=== PATIENT | male | born 1970 | race Caucasian/White ===

== ENCOUNTER 2016-07-10 16:44 | Inpatient (IN) | payer OTHER ==
--- NOTE | ~2016-07-10 | DS ---
Discharge Summary [facility] [address] [place]. [address] NAME: JOEL CHUA : 66 STATUS : DIS IN PAT#: [id number] AGE: 45 ADM/REG DATE : 07/10/16 MR#: [id number] REPORT SERV DATE: 07/23/16 DICTATED BY: ZIYAD MIR DATE: 07/22/16 REPORT STATUS : Draft TRANSCRIBED BY: MODL DATE: 07/22/16 Data Collection from hospitalization DISCHARGE DIAGNOSIS(ES): 1. Upper abdominal pain. 2. Abdominal distention. 3. Nausea and vomiting. 4. Obstructive sleep apnea. 5. Gastroesophageal reflux disease. 6. Hemorrhoids. CONSULTATIONS: Lowell Cisse MD PROCEDURES PERFORMED: Abdominal ultrasound 07/11/2016. MEDICATIONS: Valium 10 mg twice a day as needed, Lidoderm patch one patch topically daily, Percocet 10/325 one tablet every 4 hours as needed, Lyrica 75 mg three times a day, Zantac 300 mg at bedtime, Flomax 0.4 mg at bedtime, Zanaflex 4 mg twice a day as needed, Effexor XR 37.5 mg every morning as instructed. CONDITION AT DISCHARGE: Stable. DISPOSITION: The patient was discharged home with diet and activities as instructed. HOSPITAL COURSE: This is a 45-year-old man who presented with increasing abdominal pain. He had had extensive workup for intermittent abdominal pain in the past including panendoscopy, CT scan, and colonoscopy. His pain increased over the past two to three days prior to admission. He had two emergency room visits which reportedly were negative. He was told that x-rays were negative too. He had noticed progressive abdominal distention with nausea and vomiting on one occasion. He denied diarrhea, but he had had occasional constipation. He denied any blood in his stools. He was admitted to the hospital at this time for further evaluation and treatment. Upon admission, he was afebrile. Labs looked okay. He was seen by Dr. Lowell Cisse. The patient said he had had an over 5 months of abdominal pain, right greater than left. He said he had had some swelling and increased pain. His labs were found to be within normal limits. Liver function tests were within normal limits at this time. Abdominal x-ray showed unremarkable nonspecific gas pattern. An abdominal ultrasound was requested. He still complained of some periumbilical pain. An abdominal ultrasound showed minimal nonobstructing left nephrolithiasis. There was inadequate visualization of the pancreas. This was, otherwise, a negative ultrasound exam of the abdomen. Small bowel followthrough was requested. There was no evidence of obstruction at this time. On 07/12/2016, he still complained of right upper quadrant pain. Small bowel followthrough was performed. This showed normal caliber small bowel without evidence of obstruction. Discharge planning was performed. On 07/13/2016, he still complained of constant right-sided pain. He had mild tenderness. The small bowel follow-through had been negative. Discharge instructions were given. Due to his improved and stable condition, he was discharged home with the above- stated instructions. Discharge Summary [address] [address] NAME: JOEL CHUA : 66 STATUS : DIS IN PAT#: [id number] AGE: 45 ADM/REG DATE : 07/10/16 MR#: [id number] REPORT SERV DATE: 07/23/16 DICTATED BY: ZIYAD MIR DATE: 07/22/16 REPORT STATUS : Draft TRANSCRIBED BY: ORI DATE: 07/22/16 Information collected by: Dedra Iqbal I submit the above information as my discharge summary. TG/ORI Ziyad Mir M.D. / [id number] CC: Zaina Dennison M.D. Wesley Giles, MD
--- NOTE | ~2016-07-10 | HP ---
History And Physical [address] [place]. [address] NAME: JOEL CHUA : [birth year] STATUS : ADM IN [facility]#: [id number] AGE: 45 ADM/REG DATE : 07/10/16 MR#: [id number] REPORT SERV DATE: 07/11/16 DICTATED BY: EVAN BRAUN DATE: 07/11/16 REPORT STATUS : Draft TRANSCRIBED BY: ORI DATE: 07/11/16 DATE OF ADMISSION: 07/10/2016 LOCATION: CDU bed 20. This gentleman is being admitted with increasing abdominal pain. HISTORY OF PRESENT ILLNESS: This 45-year-old gentleman is known to me. He has had extensive workups for intermittent abdominal pain in the past including panendoscopy, CT, and colonoscopy. Pain increased over the last 2 to 3 days prior to admission. He had 2 emergency room visits which reportedly were negative. He was told that x-rays were negative too. He has noted progressive abdominal distention with nausea and vomiting on 1 occasion. He denies diarrhea but does note occasional constipation. He denies blood in the stools. REVIEW OF SYSTEMS: Otherwise unremarkable. PHYSICAL EXAMINATION: GENERAL: Shows an alert but uncomfortable gentleman. VITAL SIGNS: Normal. HEAD, EYES, EARS, NOSE, AND THROAT: Grossly normal. NECK: Supple. CHEST: Clear. CARDIAC: Regular rhythm without rubs or murmurs. ABDOMEN: Soft with moderate distention. There is [id number] tenderness in the epigastrium. Bowel sounds are diminished. No palpable masses. IMPRESSION: 1. Upper abdominal pain. 2. Abdominal distention. 3. Nausea and vomiting. PLAN: Admit for diagnosis and treatment. Surgical consultation will be obtained. ALEXANDRA/ORI Evan Braun M.D. / [id number] CC: Zaina Dennison M.D.
[2016-07-10 18:09] LABS: BASOPHILS 0.5 %; BASOPHILS ABSOLUTE 0.05 10/3/uL (0.0-0.16); EOSINOPHILS 2.6 %; EOSINOPHILS ABSOLUTE 0.26 10/3/uL (0.0-0.53); HEMATOCRIT 45.4 % (40.0-51.0); HEMOGLOBIN 14.7 g/dL (13.6-17.8); IMMATURE GRANULOCYTES 0.3 %; IMMATURE GRANULOCYTES ABSOLUTE 0.03 10/3/uL (0.0-0.11); LYMPHOCYTES 28.8 %; LYMPHOCYTES ABSOLUTE 2.85 10/3/uL (0.67-4.30); MEAN CORPUS HGB CONC 32.4 g/dL (32.0-36.0); MEAN CORPUSCULAR HEMOGLOB 30.6 pg (26.0-34.0); MEAN CORPUSCULAR VOLUME 94.6 fL (80-100); MONOCYTES ABSOLUTE 1.09 10/3/uL (0.21-1.20); NEUTROPHILS 56.8 %; NEUTROPHILS ABSOLUTE 5.63 10/3/uL (2.02-8.40); PLATELET COUNT 259 10/3/uL (150-400); RBC DISTRIBUTION WIDTH 15.5 % (12.0-16.0); WHITE BLOOD CELLS 9.9 10/3/uL (4.5-10.5)
[2016-07-10 18:16] LABS: MANUAL DIFF NO %
[2016-07-10 18:31] LABS: ALBUMIN 3.2 G/DL (3.5-5.0); ALKALINE PHOSPHATASE 104 U/L (45-117); BUN (BLOOD UREA NITROGEN) 5 MG/DL (6-23); CALCIUM, SERUM 8.6 MG/DL (8.5-10.4); CHLORIDE, SERUM 106 MMOL/L (96-112); CO2 (CARBON DIOXIDE) 32 MMOL/L (24-34); CREATININE 0.95 MG/DL (0.70-1.30); GFR AFRICAN AMERICAN 110 ML/MIN (>=60); GFR NON AFRICAN AMERICAN 95 ML/MIN (>=60); GLOBULIN 3.2 G/DL (2.5-4.1); GLUCOSE, SERUM 102 MG/DL (60-99); POTASSIUM, SERUM 4.2 MMOL/L (3.5-5.3); SGOT(AST) 17 U/L (5-40); SGPT(ALT) 22 U/L (5-65); SODIUM, SERUM 143 MMOL/L (135-148); TOTAL BILIRUBIN 0.3 MG/DL (0-1.2); TOTAL PROTEIN 6.4 G/DL (6.0-8.5)
[2016-07-10] MEDS ORDERED: LYRICA75 PO ×2 (22:28→23:39)
[2016-07-10] MEDS ORDERED: EFFEXXR37 PO ×2 (22:31→23:40)
[2016-07-10] MEDS ORDERED: FLOMAX4 PO ×2 (22:32→23:39)
[2016-07-10] MEDS ORDERED: ZANAFLEX 4 MG TA4 MG PO ×2 (22:32→23:39)
[2016-07-10] MEDS ORDERED: VALIUM10 MG PO ×2 (22:33→23:38)
[2016-07-10] MEDS ORDERED: ZANTAC300 MG PO ×2 (22:33→23:39)
[2016-07-10] MEDS ORDERED: LIDODERM TOP (23:42)
[2016-07-13] MEDS ORDERED: PERCOCET 10/3251 TAB PO (11:41)
== END 2016-07-13 12:41 | disposition home or self-care (01) | DRG 392 ==
LOC: CDU2 16:44
PROVIDERS: Internal Medicine Gastroenterology
DX: R10.11 Right upper quadrant pain (principal); E66.9 Obesity, unspecified; Z68.34 Body mass index [BMI] 34.0-34.9, adult
CPT/HCPCS: 74020; 74250; 76700; 80053; 82150; 83690; 85025; A9270-GY; J1170